=== PATIENT | female | born 1975 | race Caucasian/White ===

== ENCOUNTER → 2017-12-21 | Outpatient (CLI) | payer OTHER ==
--- NOTE | 2017-12-21 14:15 | RAD ---
Transabdominal and transvaginal vaginal pelvic ultrasound 12/21/2017 Indication: Ovarian cyst. Pelvic pain. History of hysterectomy. Comparison study: None. Discussion: Ultrasound evaluation of the pelvis performed transabdominally and transvaginally. Static images were submitted to PACS. The bladder is unremarkable. The patient is status post hysterectomy. The right ovary measures 3.1 x 2.3 x 2.9 cm. Multiple follicles are present. There is a simple appearing cyst versus dominant follicle measuring 1.6 cm on the right. The left ovary measures 4.4 x 3.4 x 2.4 cm again containing multiple follicles. There is a simple appearing cyst in left ovary measuring up to 3.1 cm in diameter with either a single thin septation or an adjacent cyst/follicle. No free fluid is seen in the pelvis. Blood flow to ovarian parenchyma appears grossly unremarkable. No other focal sonographic abnormalities are identified. Impression: 3.1 cm cyst in left ovary with single thin septation versus adjacent follicle. Dominant follicle or small simple appearing cyst in the right ovary measures 1.6 cm in diameter. Otherwise unremarkable pelvic ultrasound.
== END | disposition home or self-care (01) ==
LOC: US 08:00
PROVIDERS: ATTEND Obstetrics & Gynecology
DX: N83.202 Unspecified ovarian cyst, left side (principal); Z90.710 Acquired absence of both cervix and uterus; Z85.43 Personal history of malignant neoplasm of ovary
CPT/HCPCS: 76830; 76856

== ENCOUNTER → 2018-01-23 | Outpatient (CLI) | payer OTHER ==
[2018-01-23 09:54] LABS: BASO % 1 % (0-3); EOS # 0.2 x10^3/uL (0.0-0.7); EOS % 3 % (0-3); HEMOGLOBIN 12.9 g/dL (12.0-15.5); LYMPH # 1.8 x10^3/uL (1.0-4.8); LYMPH % 30 % (24-48); MEAN CORPUSCULAR HEMOGLOBIN 29 pg (25-35); MEAN CORPUSCULAR HGB CONC 34 g/dL (31-37); MEAN CORPUSCULAR VOLUME 85 fL (79-100); MONO # 0.4 x10^3/uL (0.0-1.1); MONO % 7 % (0-9); NEUT # 3.6 x10^3uL (1.8-7.7); NEUT % 60 % (31-73); PLATELET COUNT 256 x10^3/uL (140-400); RED BLOOD COUNT 4.48 x10^6/uL (3.50-5.40); RED CELL DISTRIBUTION WIDTH 12.8 % (11.5-14.5)
[2018-01-23 11:03] LABS: ALBUMIN 3.7 g/dL (3.4-5.0); ALBUMIN/GLOBULIN RATIO 1.1 (1.0-1.7); CALCIUM 8.6 mg/dL (8.5-10.1); CREATININE 0.8 mg/dL (0.6-1.0); GFR 78.7; POTASSIUM 4.2 mmol/L (3.5-5.1); TOTAL BILIRUBIN 0.3 mg/dL (0.2-1.0)
[2018-01-23 14:04] LABS: THYROID STIM HORMONE (TSH) 1.102 uIU/mL (0.358-3.740)
== END | disposition home or self-care (01) ==
LOC: LAB 07:41
PROVIDERS: ATTEND Family Medicine
DX: Z00.00 Encounter for general adult medical examination without abnormal findings (principal); R79.89 Other specified abnormal findings of blood chemistry
CPT/HCPCS: 36415; 80053; 80061; 84443; 85025; 86703

== ENCOUNTER → 2018-01-23 | Outpatient (CLI) | payer OTHER ==
--- NOTE | 2018-01-23 15:56 | RAD ---
Pelvic ultrasound History: Follow-up cyst. Hysterectomy. Comparison: Ultrasound pelvis December 21, 2017. Technique: Transabdominal ultrasound was performed for initial evaluation of the pelvis. Endovaginal imaging was performed for better characterization of the ovaries. TRANSABDOMINAL IMAGING Findings: Uterus is absent. Right ovary measures 4.0 x 3.3 x 4.8 cm and demonstrates presence of 2 adjacent cysts versus follicles measuring about 4.8 cm in maximum dimension. Right ovary demonstrates normal vascular flow upon Doppler interrogation and is without evidence of torsion. Left ovary measures 2.3 x 1.5 x 2.4 cm cyst. There has been resolution of previously identified left ovarian cyst. ENDOVAGINAL IMAGING Findings: Uterus is absent. The right ovary measures 3.6 x 5.0 x 5.2 cm and demonstrates a cyst measuring 3.1 cm. Additional septated follicle measuring 1.9 cm is seen. Left ovary measures 1.3 x 2.6 x 2.7 cm and demonstrates a few neurologic follicles. There is interval resolution of previously identified cyst. Both ovaries demonstrate normal vascular flow upon Doppler interrogation and is without evidence of torsion. Impression: 1. Both ovaries demonstrate physiologic follicles and cysts. 2. Interval resolution of previously identified left ovarian cyst. 3. Status post hysterectomy. Electronically signed by: Jone Grant MD (01/23/2018 3:53 PM) [facility]
== END | disposition home or self-care (01) ==
LOC: US 07:40
PROVIDERS: ATTEND Obstetrics & Gynecology
DX: N83.201 Unspecified ovarian cyst, right side (principal); Z90.710 Acquired absence of both cervix and uterus
CPT/HCPCS: 76830; 76856

== ENCOUNTER → 2018-03-07 | Outpatient (CLI) | payer OTHER ==
--- NOTE | 2018-03-07 14:45 | RAD ---
Examination: Ultrasound pelvis HISTORY: History of pelvic pain, ovarian cyst COMPARISON: 01/23/2018 FINDINGS: The uterus is not identified likely prior hysterectomy. The right ovary measures 2.4 x 2.9 x 3.7 cm. Left ovary measures 2.9 x 2.4 x 2.2 cm There is a 2.4 cm cyst or follicle identified in the right ovary. In the left ovary there is a 1.1 cm heterogeneous echogenicity containing reticulation within be a small hemorrhagic cyst. No significant free fluid identified in the cul-de-sac. IMPRESSION: 1. Probable 1.1 cm heterogeneous echogenicity in the left ovary containing reticulation within could be a small hemorrhagic cyst. 2. A 2.4 cm cyst or follicle identified in the right ovary. Electronically signed by: Julio Hoang MD (03/07/2018 2:42 PM) [id number]
== END | disposition home or self-care (01) ==
LOC: US 10:31
PROVIDERS: ATTEND Obstetrics & Gynecology
DX: N83.292 Other ovarian cyst, left side (principal); Z85.43 Personal history of malignant neoplasm of ovary
CPT/HCPCS: 76830; 76856

== ENCOUNTER → 2019-01-16 | Outpatient (CLI) | payer OTHER ==
--- NOTE | 2019-01-16 09:28 | RAD ---
DATE: 01/16/2019 EXAM: MAMMO CRISTINA SCREENING BILATERAL HISTORY: Routine screening COMPARISON: 07/25/2016 This study was interpreted with the benefit of Computerized Aided Detection (CAD). Breast Density: HETERO The breast parenchyma is heterogenously dense, which could reduce sensitivity of mammography. Breast parenchyma level C. FINDINGS: 2-D and 3-D tomosynthesis imaging was performed in CC and MLO projections. No new or enlarging breast densities are seen. No suspicious microcalcifications are evident. IMPRESSION: Stable mammograms without evidence of malignancy. BI-RADS CATEGORY: 1 NEGATIVE RECOMMENDED FOLLOW-UP: 12M 12 MONTH FOLLOW-UP PQRS compliance statement: Patient information was entered into a reminder system with a target due date for the next mammogram. Mammography is a sensitive method for finding small breast cancers, but it does not detect them all and is not a substitute for careful clinical examination. A negative mammogram does not negate a clinically suspicious finding and should not result in delay in biopsying a clinically suspicious abnormality. "Our facility is accredited by the [employer] Mammography Program."
== END | disposition home or self-care (01) ==
LOC: MAMMO 07:46
PROVIDERS: ATTEND Family Medicine
DX: Z12.31 Encounter for screening mammogram for malignant neoplasm of breast (principal)
CPT/HCPCS: 77063; 77067

== ENCOUNTER 2019-08-20 09:20 | Emergency (ER) | payer OTHER ==
[~2019-08-20] VITALS: Ht 170.2 cm; Wt 96.6 kg
[2019-08-20] MEDS ORDERED: IV NORMAL SALINE 1,000ML 1,000 ML IV ONE (10:00)
[2019-08-20 10:10] LABS: BASO # 0.1 x10^3/uL (0.0-0.2); BASO % 1 % (0-3); EOS # 0.2 x10^3/uL (0.0-0.7); EOS % 2 % (0-3); HEMATOCRIT 38.4 % (36.0-47.0); HEMOGLOBIN 12.6 g/dL (12.0-15.5); LYMPH # 1.9 x10^3/uL (1.0-4.8); LYMPH % 26 % (24-48); MEAN CORPUSCULAR HEMOGLOBIN 29 pg (25-35); MEAN CORPUSCULAR HGB CONC 33 g/dL (31-37); MEAN CORPUSCULAR VOLUME 87 fL (79-100); MONO # 0.5 x10^3/uL (0.0-1.1); MONO % 7 % (0-9); NEUT # 4.6 x10^3uL (1.8-7.7); NEUT % 64 % (31-73); PLATELET COUNT 225 x10^3/uL (140-400); RED BLOOD COUNT 4.41 x10^6/uL (3.50-5.40); RED CELL DISTRIBUTION WIDTH 12.6 % (11.5-14.5); WHITE BLOOD COUNT 7.2 x10^3/uL (4.0-11.0)
[2019-08-20 10:13] LABS: CALCIUM 8.6 mg/dL (8.5-10.1); CREATININE 0.9 mg/dL (0.6-1.0); GFR 68.3; POTASSIUM 4.1 mmol/L (3.5-5.1)
[2019-08-20] MEDS ORDERED: CLINDAMYCIN 600MG PREMIX 50 ML IV ONE (10:15)
[2019-08-20] MEDS ORDERED: IOHEXOL 300 MG/ML 75 ML VIAL. IV ONE (10:15)
[2019-08-20] MEDS ORDERED: KETOROLAC 15 MG/ML VIAL. IVP ONE (10:15)
[2019-08-20 10:19] LABS: ALBUMIN 4.1 g/dL (3.4-5.0); ALBUMIN/GLOBULIN RATIO 1.2 (1.0-1.7); MAGNESIUM 2.1 mg/dL (1.8-2.4); TOTAL BILIRUBIN 0.3 mg/dL (0.2-1.0); TOTAL PROTEIN 7.6 g/dL (6.4-8.2)
--- NOTE | 2019-08-20 10:29 | PHYS DOC ---
Past History Past Medical History: Anxiety Additional Past Medical Histor: PTSD, insomnia, chronic back pain Past Surgical History: Cholecystectomy, Hysterectomy Smoking: Non-smoker Alcohol Use: Occasionally Drug Use: None Adult General Chief Complaint Chief Complaint: EYE PROBLEMS HPI HPI Patient is a 43-year-old female with no significant past medical history that is worsening to the emergency department with eye swelling. Patient states that her eye began to develop some redness and swelling last Sunday, she went to see her doctor on Sunday and was started on bacitracin ophthalmic ointment. She states that she has had all the appropriate doses of bacitracin ointment and the redness and swelling has continued to increase. She states that the pain is increased as well. She denies any vision changes on the left side, but states that she has started to see what she describes as "spiderwebs" on the right side. She called her family doctor who instructed her to come to the emergency department to be further evaluated. Patient denies nausea, vomiting, fever at home. He denies any foreign objects in trauma to the face. Review of Systems Review of Systems Constitutional: Denies fever or chills Eyes: Reports redness and discharge and eyelid swelling HENT: Denies nasal congestion or sore throat Respiratory: Denies cough or shortness of breath Cardiovascular: Denies chest pain or palpitations GI: Denies abdominal pain, nausea, or vomiting : Denies dysuria or hematuria Musculoskeletal: Denies back pain or joint pain Integument: Denies rash or skin lesions Neurologic: Denies headache, focal weakness or sensory changes Complete systems were reviewed and found to be within normal limits, except as documented in this note. Physical Exam Physical Exam Constitutional: Well developed, well nourished, no acute distress, non-toxic appearance HENT: Normocephalic, atraumatic, oropharynx moist Eyes: PERRL, EOMI, erythema of the left eye with edema, tenderness to the left periorbital region, discharge present to the left eye, no changes noted on the right side, conjunctiva mildly injected on the left side, pain with lateral d eviation of the left Neck: Normal range of motion, no tenderness, supple Cardiovascular: Heart rate normal, regular rhythm Lungs & Thorax: Bilateral breath sounds clear to auscultation, no wheezing Skin: Warm, dry, no erythema, no rash Extremities: No tenderness, ROM intact, no edema Neurologic: Alert and oriented X 3, no focal deficits noted Psychologic: Affect normal, judgement normal EKG EKG [] Radiology/Procedures Radiology/Procedures PROCEDURE: CT ORBITS W/CONTRAST CT ORBITS W/CONTRAST History: Left periorbital edema and erythema. Evaluate for orbital cellulitis. Comparison: None. Technique: Axial CT of the orbits with contrast. Coronal and sagittal reconstructions were performed. Exposure: One or more of the following individualized dose reduction techniques were utilized for this examination: 1. Automated exposure control 2. Adjustment of the mA and/or kV according to patient size 3. Use of iterative reconstruction technique. Findings: Left preseptal periorbital soft tissue swelling. No soft tissue abscess. No retro-orbital involvement. Symmetric appearance of the globes. Symmetric bilateral external ocular muscles and optic nerve sheath. No dilatation of the superior ophthalmic vein. Opacities in the right frontal sinus. Otherwise, there is a sinuses are clear. Mastoid air cells are clear. No acute fracture. Impression: 1. Left preseptal periorbital edema, likely cellulitis. No retro-orbital involvement. 2. Right frontal sinus disease. Electronically signed by: Gasper Escobar DO (08/20/2019 11:00 AM) [id number] DICTATED AND SIGNED BY: GASPER ESCOBAR DO DATE: 08/20/19 1100 CC: BEA ERICKSON MD; CARLOS POSADA DO ~ Course & Med Decision Making Course & Med Decision Making Pertinent Labs and Imaging studies reviewed. (See chart for details) Patient is a 43-year-old female with no significant past medical history presenting to the emergency department with eye swelling with history of worsening despite outpatient management by PCP. Patient was seen and evaluated at bedside. Physical exam was significant for pain with movement of the left eye, swelling and erythema of the left eye, patient denies vision changes in the left eye. Labs and imaging ordered. Initial labs at baseline. Orbit CT with contrast negative for orbital cellulitis but does note signs of preseptal cellulitis. IV antibiotics given with Clindamycin and Rocephin. Discussed with PCP, Juma, who is in agreement with close outpatient followup with Rx for oral antibiotics given. Rx for zofran given per patient request secondary to concern antibiotics cause nausea for patient. Patient stable for discharge with outpatient follow-up with PCP. Discussed findings and plan with patient and family, who acknowledge understanding and agreement. Dragon Disclaimer Renu Disclaimer This electronic medical record was generated, in whole or in part, using a voice recognition dictation system. Departure Departure: Impression: Primary Impression: Preseptal cellulitis Disposition: 01 HOME, SELF-CARE Condition: STABLE Referrals: BEA ERICKSON MD (PCP) Patient Instructions: Periorbital Cellulitis Scripts Ondansetron (ONDANSETRON ODT) 4 Mg Tab.rapdis 1 TAB PO PRN Q6-8HRS PRN for NAUSEA, #16 TAB Prov: CARLOS POSADA DO 08/20/19 Cefdinir (CEFDINIR) 300 Mg Capsule 1 CAP PO BID for cellulitis for 7 Days, #14 CAP Prov: CARLOS POSADA DO 08/20/19 Clindamycin Hcl (CLINDAMYCIN HCL) 300 Mg Capsule 1 CAP PO TID for infection for 7 Days, #21 CAP Prov: CARLOS POSADA DO 08/20/19 CARLOS POSADA DO Aug 20, 2019 10:29
[2019-08-20 10:35] LABS: BACTERIA,URINE MOD /HPF (0-FEW); BILIRUBIN,URINE NEG (NEG); CLARITY,URINE HAZY; COLOR,URINE YELLOW; GLUCOSE,URINE NEG (NEG); NITRITE,URINE NEG (NEG); RBC,URINE OCC /HPF (0-2); SQUAMOUS EPITHELIAL CELL,UR MOD /LPF; WBC,URINE OCC /HPF (0-4)
[2019-08-20 10:36] LABS: UROBILINOGEN,URINE 0.2 mg/dL (0.2 mg/dL)
[2019-08-20] MEDS ORDERED: ONDANSETRON PF 4 MG/2 ML VIAL. ONE (11:00)
--- NOTE | 2019-08-20 11:03 | RAD ---
CT ORBITS W/CONTRAST History: Left periorbital edema and erythema. Evaluate for orbital cellulitis. Comparison: None. Technique: Axial CT of the orbits with contrast. Coronal and sagittal reconstructions were performed. Exposure: One or more of the following individualized dose reduction techniques were utilized for this examination: 1. Automated exposure control 2. Adjustment of the mA and/or kV according to patient size 3. Use of iterative reconstruction technique. Findings: Left preseptal periorbital soft tissue swelling. No soft tissue abscess. No retro-orbital involvement. Symmetric appearance of the globes. Symmetric bilateral external ocular muscles and optic nerve sheath. No dilatation of the superior ophthalmic vein. Opacities in the right frontal sinus. Otherwise, there is a sinuses are clear. Mastoid air cells are clear. No acute fracture. Impression: 1. Left preseptal periorbital edema, likely cellulitis. No retro-orbital involvement. 2. Right frontal sinus disease. Electronically signed by: Gasper Pfeiffer DO (08/20/2019 11:00 AM) [id number]
[2019-08-20] MEDS ORDERED: ONDANSETRON PF 4 MG/2 ML VIAL. IVP ONE (11:15)
[2019-08-20] MEDS ORDERED: CEFD300C PO (11:15)
[2019-08-20] MEDS ORDERED: CLIN300C8 PO (11:15)
[2019-08-20] MEDS ORDERED: IV NORMAL SALINE 50ML 50 ML ONE (11:26)
[2019-08-20] MEDS ORDERED: cefTRIAXone SODIUM 1 GM VIAL ONE (11:26)
[2019-08-20] MEDS ORDERED: ONDA4TAB12 PO (11:27)
[2019-08-20 11:52] VITALS: BP 102/56
== END 2019-08-20 11:52 | disposition home or self-care (01) ==
LOC: ER 09:20
DX: L03.213 Periorbital cellulitis (principal); F41.9 Anxiety disorder, unspecified; F43.10 Post-traumatic stress disorder, unspecified; G89.29 Other chronic pain
CPT/HCPCS: 36415; 70481; 80053; 81001; 83605; 83735; 85025; 85610; 85730; 87086; 96365; 96367; 96375; 99285; J0696; J1885; J2405; J3490; Q9967; J7030

== ENCOUNTER → 2020-02-19 | Outpatient (CLI) | payer OTHER ==
[~2020-02-19] MED LIST: CEFD300C PO; CLIN300C8 PO; ONDA4TAB12 PO
--- NOTE | 2020-02-19 14:35 | RAD ---
DATE: 02/19/2020 1:00 PM EXAM: MAMMO CRISTINA DANICA ACKERMAN HISTORY: 44-year-old woman due for mammographic screening presenting with left parasternal breast/chest wall pain. She denies a palpable area of concern. COMPARISON: 01/16/2019 TECHNIQUE: Bilateral CC and MLO views of the breasts were performed. Bilateral breast tomosynthesis was performed in CC and MLO projections. A cleavage and right X CCL 2-D images were acquired along with a right 3-D X CCL view. This study was interpreted with the benefit of Computerized Aided Detection (CAD). FINDINGS: Breast Density: SCATTERED The breast parenchyma shows scattered fibroglandular densities. Breast parenchyma level B No suspicious masses, microcalcifications or architectural distortion is present to suggest malignancy in either breast. The visualized axillae are unremarkable. Note the costochondral junction is not includable in the field of view on mammography and has no sonographic findings that would be helpful in establishing or excluding costochondritis if this diagnosis was suspected. MRI would be better, if additional imaging was desired. Since there was no palpable area of concern at this visit, ultrasound was deferred in favor of clinical assessment and management. IMPRESSION: No mammographic evidence of malignancy. BI-RADS CATEGORY: 1 NEGATIVE RECOMMENDED FOLLOW-UP: 12M 12 MONTH FOLLOW-UP Annual screening mammography is recommended, unless clinically indicated sooner based on symptoms or change in physical exam. PQRS compliance statement: Patient information was entered into a reminder system with a target due date 02/19/2021 for the next mammogram. Mammography is a sensitive method for finding small breast cancers, but it does not detect them all and is not a substitute for careful clinical examination. A negative mammogram does not negate a clinically suspicious finding and should not result in delay in biopsying a clinically suspicious abnormality. "Our facility is accredited by the [employer] Mammography Program."
== END ==
LOC: MAMMO 12:40
PROVIDERS: ATTEND Obstetrics & Gynecology
DX: R92.2 Inconclusive mammogram (principal); N63.20 Unspecified lump in the left breast, unspecified quadrant
CPT/HCPCS: 77066; G0279; 77062

== ENCOUNTER 2020-04-12 18:44 | Emergency (ER) | payer OTHER ==
[~2020-04-12] VITALS: Ht 170.2 cm; Wt 98.1 kg
[2020-04-12] MEDS: ONDANSETRON PF 4 MG/2 ML VIAL. IVP ONE (19:47)
[2020-04-12] MEDS: IV NORMAL SALINE 1,000ML 1,000 ML IV ONE (19:48)
[2020-04-12 19:52] LABS: BASO % 1 % (0-3); EOS # 0.1 x10^3/uL (0.0-0.7); EOS % 1 % (0-3); HEMATOCRIT 36.6 % (36.0-47.0); HEMOGLOBIN 11.8 g/dL (12.0-15.5); LYMPH # 2.7 x10^3/uL (1.0-4.8); LYMPH % 34 % (24-48); MEAN CORPUSCULAR HEMOGLOBIN 29 pg (25-35); MEAN CORPUSCULAR HGB CONC 32 g/dL (31-37); MEAN CORPUSCULAR VOLUME 89 fL (79-100); MONO # 0.5 x10^3/uL (0.0-1.1); MONO % 6 % (0-9); NEUT # 4.7 x10^3uL (1.8-7.7); NEUT % 58 % (31-73); PLATELET COUNT 225 x10^3/uL (140-400); RED BLOOD COUNT 4.12 x10^6/uL (3.50-5.40); RED CELL DISTRIBUTION WIDTH 13.3 % (11.5-14.5); WHITE BLOOD COUNT 8.1 x10^3/uL (4.0-11.0)
[2020-04-12 19:54] LABS: CALCIUM 8.5 mg/dL (8.5-10.1); CREATININE 1.1 mg/dL (0.6-1.0); POTASSIUM 3.9 mmol/L (3.5-5.1)
[2020-04-12 19:59] LABS: ALBUMIN 4.1 g/dL (3.4-5.0); ALBUMIN/GLOBULIN RATIO 1.2 (1.0-1.7); TOTAL BILIRUBIN 0.2 mg/dL (0.2-1.0); TOTAL PROTEIN 7.4 g/dL (6.4-8.2)
[2020-04-12 20:01] LABS: BACTERIA,URINE FEW /HPF (0-FEW); BILIRUBIN,URINE NEG (NEG); CLARITY,URINE HAZY; COLOR,URINE YELLOW; GLUCOSE,URINE NEG (NEG); NITRITE,URINE NEG (NEG); SQUAMOUS EPITHELIAL CELL,UR FEW /LPF; UROBILINOGEN,URINE 0.2 mg/dL (0.2 mg/dL)
[2020-04-12 20:10] VITALS: BP 132/69
[2020-04-12] MEDS ORDERED: ONDA4TAB12 PO (20:22)
--- NOTE | 2020-04-12 20:22 | PHYS DOC ---
Past History Past Medical History: Anxiety Additional Past Medical Histor: PTSD, insomnia, chronic back pain Past Surgical History: Cholecystectomy, Hysterectomy Additional Past Surgical Histo: lap sleeve gastrectomy, nerve ablation in cervical spine Smoking: Non-smoker Alcohol Use: Occasionally Drug Use: None General Adult EDM: Chief Complaint: FEVER HPI: HPI: Patient is a [age] year old [sex] who presents with [] Review of Systems: Review of Systems: Constitutional: Denies fever or chills Eyes: Denies change in visual acuity HENT: Denies nasal congestion or sore throat Respiratory: Denies cough or shortness of breath Cardiovascular: Denies chest pain or edema GI: Denies abdominal pain, nausea, vomiting, bloody stools or diarrhea : Denies dysuria Musculoskeletal: Denies back pain or joint pain Integument: Denies rash Neurologic: Denies headache, focal weakness or sensory changes Endocrine: Denies polyuria or polydipsia Lymphatic: Denies swollen glands Psychiatric: Denies depression or anxiety Heart Score: Risk Factors: Risk Factors: DM, Current or recent (<one month) smoker, HTN, HLP, family history of CAD, obesity. Risk Scores: Score 0 - 3: 2.5% MACE over next 6 weeks - Discharge Home Score 4 - 6: 20.3% MACE over next 6 weeks - Admit for Clinical Observation Score 7 - 10: 72.7% MACE over next 6 weeks - Early Invasive Strategies Current Medications: Current Meds: Current Medications Medications (Trade) Dose Ordered Sig/Rex Start Time Stop Time Status Last Admin Dose Admin Ondansetron HCl (Zofran) 4 mg 1X ONCE 04/12/20 19:45 04/12/20 19:51 DC 04/12/20 19:47 4 MG Sodium Chloride 1,000 ml @ 1,000 mls/hr 1X ONCE 04/12/20 19:45 04/12/20 20:44 04/12/20 19:48 1,000 MLS/HR Allergies: Allergies: Allergies Coded Allergies Type Severity Reaction Last Updated Verified Penicillins Allergy Unknown 08/20/19 Yes Sulfa (Sulfonamide Antibiotics) Allergy Unknown 08/20/19 Yes Physical Exam: PE: Constitutional: Well developed, well nourished, no acute distress, non-toxic appearance. [] HENT: Normocephalic, atraumatic, bilateral external ears normal, oropharynx moist, no oral exudates, nose normal. [] Eyes: PERRLA, EOMI, conjunctiva normal, no discharge. [] Neck: Normal range of motion, no tenderness, supple, no stridor. [] Cardiovascular:Heart rate regular rhythm, no murmur [] Lungs & Thorax: Bilateral breath sounds clear to auscultation [] Abdomen: Bowel sounds normal, soft, no tenderness, no masses, no pulsatile masses. [] Skin: Warm, dry, no erythema, no rash. [] Back: No tenderness, no CVA tenderness. [] Extremities: No tenderness, no cyanosis, no clubbing, ROM intact, no edema. [] Neurologic: Alert and oriented X 3, normal motor function, normal sensory function, no focal deficits noted. [] Psychologic: Affect normal, judgement normal, mood normal. [] Current Patient Data: Labs: Laboratory Tests Test 04/12/20 18:59 04/12/20 19:17 Urine Collection Type Unknown Urine Color Yellow Urine Clarity Hazy Urine pH 5.5 Urine Specific [place] 1.025 Urine Protein Neg (NEG-TRACE) Urine Glucose (UA) Neg mg/dL (NEG) Urine Ketones (Stick) Neg mg/dL (NEG) Urine Blood Neg (NEG) Urine Nitrite Neg (NEG) Urine Bilirubin Neg (NEG) Urine Urobilinogen Dipstick 0.2 mg/dL (0.2 mg/dL) Urine Leukocyte Esterase Neg (NEG) Urine RBC 1-2 /HPF (0-2) Urine WBC 1-4 /HPF (0-4) Urine Squamous Epithelial Cells Few /LPF Urine Bacteria Few /HPF (0-FEW) Urine Mucus Slight /LPF White Blood Count 8.1 x10^3/uL (4.0-11.0) Red Blood Count 4.12 x10^6/uL (3.50-5.40) Hemoglobin 11.8 g/dL (12.0-15.5) L Hematocrit 36.6 % (36.0-47.0) Mean Corpuscular Volume 89 fL (79-100) Mean Corpuscular Hemoglobin 29 pg (25-35) Mean Corpuscular Hemoglobin Concent 32 g/dL (31-37) Red Cell Distribution Width 13.3 % (11.5-14.5) Platelet Count 225 x10^3/uL (140-400) Neutrophils (%) (Auto) 58 % (31-73) Lymphocytes (%) (Auto) 34 % (24-48) Monocytes (%) (Auto) 6 % (0-9) Eosinophils (%) (Auto) 1 % (0-3) Basophils (%) (Auto) 1 % (0-3) Neutrophils # (Auto) 4.7 x10^3uL (1.8-7.7) Lymphocytes # (Auto) 2.7 x10^3/uL (1.0-4.8) Monocytes # (Auto) 0.5 x10^3/uL (0.0-1.1) Eosinophils # (Auto) 0.1 x10^3/uL (0.0-0.7) Basophils # (Auto) 0.0 x10^3/uL (0.0-0.2) Sodium Level 137 mmol/L (136-145) Potassium Level 3.9 mmol/L (3.5-5.1) Chloride Level 102 mmol/L (98-107) Carbon Dioxide Level 24 mmol/L (21-32) Anion Gap 11 (6-14) Blood Urea Nitrogen 8 mg/dL (7-20) Creatinine 1.1 mg/dL (0.6-1.0) H Estimated GFR (Cockcroft-Gault) 54.0 BUN/Creatinine Ratio 7 (6-20) Glucose Level 94 mg/dL (70-99) Calcium Level 8.5 mg/dL (8.5-10.1) Magnesium Level 2.0 mg/dL (1.8-2.4) Total Bilirubin 0.2 mg/dL (0.2-1.0) Aspartate Amino Transferase (AST) 26 U/L (15-37) Alanine Aminotransferase (ALT) 39 U/L (14-59) Alkaline Phosphatase 61 U/L (46-116) Total Protein 7.4 g/dL (6.4-8.2) Albumin 4.1 g/dL (3.4-5.0) Albumin/Globulin Ratio 1.2 (1.0-1.7) EKG: EKG: [] Radiology/Procedures: Radiology/Procedures: [] Course & Med Decision Making: Course & Med Decision Making Pertinent Labs and Imaging studies reviewed. (See chart for details) [] Dragon Disclaimer: Dragon Disclaimer: This electronic medical record was generated, in whole or in part, using a voice recognition dictation system. Departure Departure: Impression: Primary Impression: Nausea & vomiting Qualified Codes: R11.2 - Nausea with vomiting, unspecified Additional Impression: Suspected 2019 novel coronavirus infection Disposition: HOME/RESIDENCE PRIOR TO ADM Condition: STABLE Referrals: BEA ERICKSON MD (PCP) Patient Instructions: Nausea and Vomiting, [id number], Viral Syndrome Additional Instructions: You have been tested for or diagnosed with COVID-19. It is an infection caused by a new type of coronavirus. COVID-19 will cause cold-like or mild flu symptoms in most. It can cause more severe symptoms like problems breathing in some. There is no treatment for COVID-19. The body will clear the infection over time. Self-care will help to ease discomfort. Steps to Take: Self-Care Rest as needed. Healthy habits may help you feel better. Steps include: Choose healthy foods including fruits and vegetables. Drink water throughout the day. Get plenty of sleep each night. If you smoke, try to quit. It may ease breathing. Avoid alcohol. Keep Others Healthy The virus can spread to others. Droplets are released every time you sneeze or cough. The droplets can get into the mouth, nose, or eyes of people near you and lead to infection. To lower the chances of spreading COVID-19 to others: Stay at home until your doctor has said it is safe to leave. If you tested positive this will mean staying isolated until both of the following are true: At least 7 days have passed since the start of illness. You are free of fever for at least 72 hours without the use of medicine. During this time: - Avoid public areas, events, or transportation. Do not return to work or school until your doctor has said it is safe to do so. - Call ahead if you need to go to a medical center. Let them know you may have COVID-19. It will help them guide you where to go. They may also ask you to wear a facemask when you come to the office. - If you call for emergency medical services, let them know you may have COVID- 19. While at home: - Try to avoid close contact with others. Stay about 6 feet away. - If possible, spend most of your time in a separate room from others. - Use a face mask if you will be in close contact with others such as sharing a room or vehicle. - Have someone wipe down common surfaces in the home. Use household dumper bulk system every day on areas like doorknobs, counters, or sinks. - Cough or sneeze into a tissue. Throw the tissue away right after use. If a tissue is not available, cough or sneeze into your elbow. - Wash your hands often. Wash them after sneezing or coughing. Use soap and water and wash for at least 20 seconds. Alcohol based hand equipment or machinery cleaner can be used if soap and water is not available. - Do not prepare food for others. Avoid sharing personal items like forks, spoons, or toothbrushes. - Avoid close contact with pets while you are sick. There is no evidence of the virus passing to pets. This is a safety step until more is known about this virus. Isolation can be frustrating. Social interaction can help. Keep in touch with friends and family through phone and tech options. You can still interact with others in your home, just keep a safe distance of about 6 feet. Follow-up: Your doctors office will check in with you to see if there are any changes in your health. You may be asked to keep track of symptoms to share with them. They will also let you know when you are clear to be in public again. Problems to Look Out For: Contact your doctor if your recovery is not going as you expect. Get emergency care if you have problems such as: - Trouble breathing - Nonstop chest pain or pressure - Changes in awareness, confusion, or problems waking - Lips or face have bluish color - Worsening of symptoms If you think you have an emergency, call for emergency medical services right away. [facility] Ondansetron (ONDANSETRON ODT) 4 Mg Tab.rapdis 1 TAB PO PRN Q6-8HRS PRN for NAUSEA, #16 TAB Prov: CARLOS POSADA DO 04/12/20 Justification of Admission: Justification of Admission: Justification of Admission Dx: N/A CALROS POSADA DO Apr 12, 2020 20:22
[2020-04-12] MEDS: diphenhydrAMINE 50 MG/ML VIAL IVP ONE (20:32)
[2020-04-12] MEDS: METOCLOPRAMIDE HCL 10 MG/2 ML VIAL. IVP ONE (20:32)
--- NOTE | 2020-04-16 11:34 | NUR ---
IP: notified patient of COVID results.
== END 2020-04-12 20:35 | disposition home or self-care (01) ==
LOC: ER 18:44
DX: R11.2 Nausea with vomiting, unspecified (principal); R51 Headache; R53.83 Other fatigue; F41.9 Anxiety disorder, unspecified; G89.29 Other chronic pain; Z20.828 Contact with and (suspected) exposure to other viral communicable diseases; Z88.0 Allergy status to penicillin; Z88.2 Allergy status to sulfonamides
CPT/HCPCS: 36415; 80053; 81001; 83735; 85025; 96361; 96374; 96375; 99284; J1200; J2405; J2765; J7030; U0003